=== PATIENT | male | born 1985 | race Hispanic/Latino ===

== ENCOUNTER 2020-01-31 07:29 | Emergency (ER) | payer OTHER ==
[~2020-01-31] VITALS: Ht 170.2 cm; Wt 86.2 kg
[2020-01-31] MEDS ORDERED: BUPRENORP-NALO1 EAC1 SL (07:40)
[2020-01-31] MEDS ORDERED: ROPINIROLE HCL1 MG PO (07:40)
[2020-01-31] MEDS ORDERED: ONE-DAILY MULT1 EAC1 PO (07:40)
[2020-01-31] MEDS ORDERED: MELATONIN3 M3 PO (07:41)
[2020-01-31] MEDS ORDERED: TRAZODONE HCL100 MG PO (07:41)
== END 2020-01-31 09:06 | disposition home or self-care (01) ==
LOC: ED 07:29
DX: S06.0X9A Concussion with loss of consciousness of unspecified duration, initial encounter (principal); S00.83XA Contusion of other part of head, initial encounter; Z88.2 Allergy status to sulfonamides; Z88.1 Allergy status to other antibiotic agents; Z79.899 Other long term (current) drug therapy; W19.XXXA Unspecified fall, initial encounter
CPT/HCPCS: 70450; 99284-25